=== PATIENT | male | born 2000 | race Caucasian/White ===

== ENCOUNTER 2018-07-11 13:55 | Emergency (ER) | payer SELFPAY ==
[~2018-07-11] VITALS: Ht 170.2 cm; Wt 75.0 kg
[2018-07-11] MEDS ORDERED: ADDERALL 10 MG10 MG PO (14:18)
[2018-07-11 14:46] VITALS: BP 155/84
== END 2018-07-11 14:50 | disposition home or self-care (01) ==
LOC: ED 13:55
DX: S60.221A Contusion of right hand, initial encounter (principal); W22.8XXA Striking against or struck by other objects, initial encounter; Y92.009 Unspecified place in unspecified non-institutional (private) residence as the place of occurrence of the external cause